=== PATIENT | male | born 1960 | race Caucasian/White ===

== ENCOUNTER 2018-04-05 12:58 | Emergency (ER) | payer OTHER ==
[2018-04-05 13:17] VITALS: BP 129/78
--- NOTE | 2018-04-05 13:56 | UC ---
Minor Trauma HPI - HPI Summary HPI Summary: Pt presents with c/o right wrist, shoulder and right side rib pain that began after falling from standing this morning at ~ 07:25 this morning. Deneis LOC< Head injury or dizziness. - History of Current Complaint Chief Complaint: UCUpperExtremity Stated Complaint: WC-SP FALL-RT WRIST, RT SHOULDER PAIN Time Seen by Provider: 04/05/18 13:21 Hx Obtained From: Patient Onset/Duration: Sudden Onset, Lasting Hours, Still Present Onset Of Pain: Post Accident Severity Initially: Mild Severity Currently: Moderate Pain Intensity: 4 Mechanism Of Injury: Fall From A Standing Position Aggravating Factor(s): Deep Breaths, Movement Alleviating Factor(s): Rest - Risk Factors Penetrating Injury Risk Factors: Negative - Allergies/Home Medications Allergies/Adverse Reactions: Allergies Allergy/AdvReac Type Severity Reaction Status Date / Time meperidine [From Demerol] Allergy Altered Verified 04/05/18 13:18 Mental Status Home Medications: Home Medications Lisinopril/HCTZ 01/05.5(NF) [Zestoretic 01/05.5(NF)] 1 tab PO DAILY 04/05/18 [ History Confirmed 04/05/18] celeCOXIB CAP* [Celebrex CAP*] 200 mg PO DAILY 04/05/18 [History Confirmed 04/05] PMH/Surg Hx/FS Hx/Imm Hx Previously Healthy: Yes Cardiovascular History: Hypertension - Surgical History Surgical History: Yes Surgery Procedure, Year, and Place: TONSILLECTOMY. GALLBLADDER. VASECTOMY - Family History Known Family History: Positive: Cardiac Disease - Social History Occupation: Employed Full-time Lives: With Family Alcohol Use: None Substance Use Type: None Smoking Status (MU): Former Smoker Have You Smoked in the Last Year: No Review of Systems All Other Systems Reviewed And Are Negative: Yes Constitutional: Positive: Negative Skin: Positive: Negative Eyes: Positive: Negative ENT: Positive: Negative Respiratory: Positive: Negative Cardiovascular: Positive: Negative Gastrointestinal: Positive: Negative Genitourinary: Positive: Negative Motor: Positive: Negative, Decreased ROM - pain with ROM , right wrist, and right shoulder, pain with deep breah, right side rib cage. Neurovascular: Positive: Negative Musculoskeletal: Positive: Negative, Arthralgia, Myalgia Neurological: Positive: Negative Psychological: Positive: Negative Is Patient Immunocompromised?: No Physical Exam Triage Information Reviewed: Yes Appearance: Well-Appearing Vital Signs: Initial Vital Signs Temp 97.6 F 04/05/18 13:12 Pulse 84 04/05/18 13:12 Resp 18 04/05/18 13:12 BP 129/78 04/05/18 13:12 Pulse Ox 97 04/05/18 13:12 Vital Signs Reviewed: Yes Eye Exam: Normal ENT Exam: Normal ENT: Positive: Hearing grossly normal Dental Exam: Normal Neck exam: Normal Respiratory Exam: Normal Cardiovascular Exam: Normal Musculoskeletal: Positive: Other: - c/o pain in right wrist, shoulder and right side of rib cage. Neurological Exam: Normal Psychological Exam: Normal Skin Exam: Normal Diagnostics - Radiology No standard instances Radiology Interpretation Completed By: Radiologist - Clear lungs. The heart, pulmonary vasculature, and mediastinal contours are unremarkable. IMPRESSION: # . Negative for RIGHT rib fracture or pneumothorax. IMPRESSION: #. No radiographic evidence for traumatic injury of the RIGHT shoulder. #. Mild osteoarthritis. IMPRESSION: #. No radiographic evidence for RIGHT wrist fracture. #. Nonfocal soft tissue swelling. Minor Trauma Course/Dx - Differential Dx/Diagnosis Differential Diagnosis/HQI/PQRI: Contusion(s), Fracture, Sprain, Strain Provider Diagnosis: Contusion of right wrist, Right shoulder pain, Rib pain on right side Discharge - Sign-Out/Discharge Documenting (check all that apply): Patient Departure All imaging exams completed and their final reports reviewed: Yes - Discharge Plan Condition: Stable Disposition: HOME Patient Education Materials: Contusion in Adults (ED), R.I.C.E. Treatment (ED) Referrals: Sam Sood MD [Primary Care Provider] - If Needed - Billing Disposition and Condition Condition: STABLE Disposition: Home
== END 2018-04-05 14:25 | disposition home or self-care (01) ==
LOC: UCCORT 12:58
DX: S60.211A Contusion of right wrist, initial encounter (principal); M25.511 Pain in right shoulder; R07.81 Pleurodynia; W19.XXXA Unspecified fall, initial encounter; Y93.9 Activity, unspecified; Y92.9 Unspecified place or not applicable; Z88.5 Allergy status to narcotic agent; I10 Essential (primary) hypertension; Z87.891 Personal history of nicotine dependence
CPT/HCPCS: 99201; G0463

== ENCOUNTER 2018-11-08 07:42 | Emergency (ER) | payer BC, OTHER ==
[2018-11-08 07:57] VITALS: BP 112/72
--- NOTE | 2018-11-08 08:11 | UC ---
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 No loss of consciousness, but has developed a small hematoma at the site of the impact along the right hindu, and has right jaw pain. No vision changes, vertigo,or ataxia. He has mild nausea but no vomiting. Denies neck pain. His employer requested an evaluation. He does not take aspirin, but does use celebrex daily. - History Of Current Complaint Chief Complaint: UCHeadInjury Stated Complaint: WC-HEAD INJURY Time Seen by Provider: 11/08/18 08:00 Hx Obtained From: Patient, Family/Neonatal Nurse - here with his , who drove him in Onset/Duration: Sudden Onset, Lasting Hours - approx 1.5 hours ago Severity Currently: Mild Pain Intensity: 4 Character: Dull, Throbbing Aggravating Factor(s): Other - touch, chewing. Associated Signs And Symptoms: Positive: Nausea - Allergies/Home Medications Allergies/Adverse Reactions: Allergies Allergy/AdvReac Type Severity Reaction Status Date / Time meperidine [From Demerol] Allergy Altered Verified 04/05/18 13:18 Mental Status Home Medications: Home Medications Anticholesterol 1 tab PO QPM 11/08/18 [History Confirmed 11/08/18] PMH/Surg Hx/FS Hx/Imm Hx Cardiovascular History: Hypertension - Surgical History Surgical History: Yes Surgery Procedure, Year, and Place: TONSILLECTOMY. GALLBLADDER. VASECTOMY - Family History Known Family History: Positive: Cardiac Disease - Social History Occupation: Employed Full-time Lives: With Family Alcohol Use: None Substance Use Type: None Smoking Status (MU): Never Smoked Tobacco Have You Smoked in the Last Year: No Review of Systems All Other Systems Reviewed And Are Negative: Yes Constitutional: Positive: Fatigue Eyes: Negative: Blurred Vision, Diplopia, Photophobia ENT: Positive: Other - right jaw pain Cardiovascular: Positive: Negative Gastrointestinal: Positive: Nausea Genitourinary: Positive: Negative Motor: Positive: Negative Neurovascular: Positive: Negative Neurological: Positive: Headache - mild, right side of head Is Patient Immunocompromised?: No Physical Exam Triage Information Reviewed: Yes Appearance: Well-Appearing, Pain Distress - mild Vital Signs: Initial Vital Signs Temp 98 F 11/08/18 07:53 Pulse 75 11/08/18 07:53 Resp 16 11/08/18 07:53 BP 112/72 11/08/18 07:53 Pulse Ox 96 11/08/18 07:53 Eyes: Positive: Conjunctiva Clear, Other: - EVANGELIST, no photophobia. Fundi not well seen. ENT Exam: Other - Tenderness right TM area. ENT: Positive: Pharynx normal, TMs normal Dental Exam: Normal Neck: Positive: Supple, Nontender, No Lymphadenopathy Respiratory: Positive: Lungs clear, Normal breath sounds Cardiovascular: Positive: RRR, No Murmur Musculoskeletal Exam: Normal Musculoskeletal: Positive: Strength Intact Neurological Exam: Other - CNII-XII normal. Gait normal, negative Romberg. Normal DTR's UE. Neurological: Positive: Muscle Tone Normal Psychological Exam: Normal Skin Exam: Normal Head Injury Course/Dx - Course Course Of Treatment: Discussed symptoms which would prompt re-evaluation. Continue uce to the forehead, use celebrex. Rest at home today; return to work tomorrow. - Differential Dx/Diagnosis Differential Diagnosis/HQI/PQRI: Concussion Without LOC, Contusion, Hematoma, Mandible Fracture Provider Diagnosis: Contusion of forehead Discharge - Sign-Out/Discharge Documenting (check all that apply): Patient Departure All imaging exams completed and their final reports reviewed: No Studies - Discharge Plan Condition: Stable Disposition: HOME Patient Education Materials: Contusion in Adults (ED) Forms: *Work Release Referrals: Sam Sood MD [Primary Care Provider] - Additional Instructions: Rest at home today, using ice to the forehead for 10 to 20 minutes every few hours to decrease swelling. If you have increasing nausea, vomiting, disorientation, please go to the emergency room for further evaluation. - Billing Disposition and Condition Condition: STABLE Disposition: Home
== END 2018-11-08 08:32 | disposition home or self-care (01) ==
LOC: UCCORT 07:42
DX: S00.83XA Contusion of other part of head, initial encounter (principal); W22.8XXA Striking against or struck by other objects, initial encounter; Y93.89 Activity, other specified; Y92.89 Other specified places as the place of occurrence of the external cause; Y99.0 Civilian activity done for income or pay; I10 Essential (primary) hypertension
CPT/HCPCS: 99212; G0463